=== PATIENT | male | born 2000 | race Caucasian/White ===

== ENCOUNTER 2025-03-14 09:52 | Emergency (ER) | payer OTHER, MEDICAID ==
[~2025-03-14] VITALS: Ht 188 cm; Wt 74.7 kg
[2025-03-14] MEDS ORDERED: VENTOLIN HFA18 GM INH (10:05)
[2025-03-14] MEDS ORDERED: HYDROCODON-ACE1 EA10 PO (10:35)
[2025-03-14 11:44] VITALS: BP 120/70
== END 2025-03-14 11:44 | disposition home or self-care (01) ==
LOC: ED 09:52
DX: S62.511A Displaced fracture of proximal phalanx of right thumb, initial encounter for closed fracture (principal); W23.0XXA Caught, crushed, jammed, or pinched between moving objects, initial encounter
CPT/HCPCS: 29125; 73140; 99283